=== PATIENT | male | born 1980 | race Caucasian/White ===

== ENCOUNTER 2022-07-08 16:52 | Emergency (ER) | payer OTHER, SELFPAY ==
[2022-07-08 17:28] VITALS: BP 177/91; PULSE 114; RESP 14; TEMP 37; O2SAT 95
--- NOTE | 2022-07-08 18:03 | XRR_ITS ---
PROCEDURE INFORMATION: Exam: XR Right Forearm Exam date and time: 07/08/2022 6:18 PM Age: 41 years old Clinical indication: Injury or trauma; Other: Laceration; Arm, lower; Right; Additional info: Fb TECHNIQUE: Imaging protocol: Radiologic exam of the Right forearm. Views: 2 views. COMPARISON: No relevant prior studies available. FINDINGS: Bones/joints: Normal. No fracture. Soft tissues: Multiple radiopaque densities in the soft tissues of the mid anterior forearm. XR/XR forearm RT 2V [id number] IMPRESSION: 1. No acute skeletal finding. 2. Soft tissue or skin foreign bodies in the anterior forearm.
--- NOTE | 2022-07-08 19:40 | ED_ITS ---
HPI - Extremity Problem General: Chief complaint: Extremity Injury, Upper Stated complaint: ARM LACERATION Time Seen by Provider: 07/08/22 18:20 History of Present Illness: 41-year-old male patient comes to the emergency department with a complicated laceration to the right forearm. Patient states he was using a internal grinder tool and cut his arm with a internal grinder. Patient presents to the emergency department with bleeding controlled. Patient is neurovascular intact distally. Patient has good tapper hand strength. Patient does not know when his last tetanus shot was updated. Patient denies any other injury or trauma. Associated symptoms: Deny chest pain, fever(s) or rash Review of Systems Const: Denies: fever(s), chills, body aches, change in appetite, change in weight, fatigue, malaise or diaphoresis Eyes: Denies: change in vision, blurry vision, blind spots, photophobia, eye discomfort, eye discharge, eye redness, floaters or seeing flashes ENMT: Denies: throat pain, enlarged tonsils, odynophagia, hoarseness, mouth pain, swelling of lips/tongue, oral sores, bleeding gums, dental pain, dry mouth, ear or mastoid pain, ear discharge, change in hearing, tinnitus, disequilibrium, nasal discharge, nasal congestion, post nasal drip or sinus pain Card: Denies: chest pain, palpitations, irregular heart rhythm, edema, swelling of feet/ankles, lightheadedness, syncope, pre-syncope, dyspnea on exertion, orthopnea, leg pain with exertion or acrocyanosis Resp: Denies: dyspnea, productive cough, non-productive cough, wheezing, stridor, pain on inspiration, change in phlegm color, hemoptysis or chest congestion GI: Denies: abdominal pain, nausea, vomiting, hematemesis, dysphagia, diarrhea, constipation, GI cramping, change in bowel habits or rectal pain : Denies: flank pain, dysuria, urinary frequency, urinary urgency, urinary hesitancy or hematuria Musc: Denies: neck pain, back pain, joint pain, joint swelling, joint redness, joint warmth or deformity Skin/Breast: Denies: rash, pruritus, erythema, sores, new lesions, changes in skin color or dry skin Neuro: Denies: headache(s), numbness in extremities, weakness in extremities, sensory changes, lack of coordination, difficulty walking, frequent falls, dizziness, vertigo, confusion, behavioral changes, Slurred speech present, difficulty communicating thoughts or seizure-like activity Psych: Denies: anxiety, depression, suicidal ideation or homicidal ideation Endo: Denies: polyuria, polydipsia, tired all the time, cold intolerance, excessive sweating, flushing, hot flashes or heat intolerance Prince/Lymph: Denies: easy bruising, easy bleeding, petechiae, purpura, enlarged lymph nodes or tender lymph nodes All/Imm: Denies: urticaria, throat swelling, tongue swelling, facial swelling, acute wheezing or itchy eyes Physical Exam Const: COMMON NORMALS: no acute distress, average body habitus, patient oriented x3, no limitations, healthy appearing, alert and well nourished Neck/C-Spine: COMMON NORMALS: no JVD Resp: COMMON NORMALS: normal respiratory effort, No retractions, No use of accessory muscles, clear to auscultation bilaterally and percussion normal AUSCULTATION: clear to auscultation bilaterally PERCUSSION: percussion normal Cardio: COMMON NORMALS: no JVD, regular rate, regular rhythm, S1 normal heart sound present, S2 normal heart sound present, No gallops present (Cardio), No clicks present (Cardio), No murmurs present (Cardio), No rub (Cardio) and Peripheral pulses 2+ throughout RATE: regular rate RHYTHM: regular rhythm HEART SOUNDS: S1 normal heart sound present and S2 normal heart sound present PERIPHERAL PULSES: Peripheral pulses 2+ throughout Extremity: NARRATIVE EXTREMITY EXAM: Complicated 6 cm laceration with muscle involvement. Tendons appear to be intact. Patient has good tapper hand strength. Patient is able to move all of his digits. I was able to visualize the tendon and it does appear to be intact. Patient is neurovascularly intact distally. Neuro: COMMON NORMALS: patient oriented x3 SENSORIUM/ORIENTATION: Yes alert Procedures Laceration Laceration 1: Site: upper extremity Size (cm): 6 Depth: involves muscle layer and involves tendon Local Anesthetic: lidocaine 1% and with epi Amount of anesthesia used (mL): 10 Pre-repair: wound explored, irrigated extensively and extensive de bridement Skin layer closed with: nylon Size (cm): 4-0 Number of sutures: 15 Technique: horizontal mattress Course Vital Signs: Vital signs: Vital Signs Temperature 98.6 F 07/08/22 17:28 Pulse Rate 114 H 07/08/22 17:28 Respiratory Rate 14 07/08/22 17:28 Blood Pressure 177/91 07/08/22 17:28 Pulse Oximetry 95 07/08/22 17:28 Oxygen Delivery Me thod 07/08/22 17:28 MDM - Extremity (Nontraumatic) Medical Decision Making Patient is well-appearing nontoxic and in no acute distress.41-year-old male patient comes to the emergency department with a complicated laceration to the right forearm. Patient states he was using a internal grinder tool and cut his arm with a internal grinder. Patient presents to the emergency department with bleeding controlled. Patient is neurovascular intact distally. Patient has good tapper hand strength. Patient does not know when his last tetanus shot was updated. Patient denies any other injury or trauma. Please see procedure note for suture repair. Patient does have good tapper hand strength. Patient is able to move all of his digits. Patient has good sensation distally to all of his digits. I was able to visualize the tendons these do appear to be intact. I did give patient 2 g of Ancef. I did place patient in a OCL splint to the volar aspect of the forearm to give this protection and some immobilization. Patient will follow-up with Ortho. I will send patient home with antibiotics. Post splint application patient does remain neurovascularly intact distally Lab Data Radiology Impressions Forearm X-Ray 07/08/22 18:03 IMPRESSION: 1. No acute skeletal finding. 2. Soft tissue or skin foreign bodies in the anterior forearm. Discharge Plan Discharge Patient Disposition: Home Clinical Impression: Laceration of arm, right, complicated Condition: Stable Prescriptions: New Augmentin 500-125 mg tablet 1 tab PO BID 10 Days Qty: 20 0RF Discharge Orders: Discharge ED (Routine); Ordered 07/08/22 Ordered By: Chelsea Mg Referrals: Rolan Lopez FNP [Primary Care Provider] - Patient Instructions: Laceration (DC), Opioid Safety Activity Restrictions/Additional Instructions: Please follow wound care instructions as reviewed Please wear splint until seen by ortho Please take medications as prescribed Please return to the ER with any worsening of condition Please return to ER in 8-10 days for suture removal Coding Level of Care Code ED [facility] for [place] [facility]
[2022-07-08] MEDS: ceFAZolin 2,000 MG in sodium chloride 0.9% (plus) 50 ML 100 MG IM (20:00)
[2022-07-08] MEDS: tetanus-diphtheria tox (adult) 0.5 mL SDV IM (20:31)
--- NOTE | 2022-07-09 12:26 | DCPLANNER ---
Addendum entered by Veena Desai 07/11/22 07:51: pharmacy general manager received the following message from the ortho clinic regarding follow up appointment: Patient stated workmans comp sent him to [facility]. Thank you Original Note: pharmacy general manager had message to schedule a follow up appointment for patient with ortho. pharmacy general manager sent patients information to the front office staff at ortho. Patients information will be printed and reviewed. Clinic will call patient with appointment information.
== END 2022-07-08 21:24 | disposition home or self-care (01) ==
PROVIDERS: Emergency Provider Registered Nurse; PCP Nurse Practitioner Family
DX: S51.811A Laceration without foreign body of right forearm, initial encounter (principal); W29.8XXA Contact with other powered hand tools and household machinery, initial encounter; Z23 Encounter for immunization
CPT/HCPCS: 12002; 12032; 73090; 80307; 90471; 90714; 96365; 99284